=== PATIENT | female | born 1985 | race Caucasian/White ===

== ENCOUNTER 2016-03-03 18:22 | Emergency (ER) | payer MEDICAID, SELFPAY ==
[2016-03-03] MEDS ORDERED: AZITHROMYCIN 250 MG TAB ONE (20:31)
[2016-03-03] MEDS ORDERED: LIDOCAINE 1% MDV 20 ML ONE (20:31)
[2016-03-03] MEDS ORDERED: CEFTRIAXONE 1 GM VIAL ONE (20:31)
== END 2016-03-03 21:30 | disposition home or self-care (01) ==
LOC: FASTR 18:22
CPT/HCPCS: 81001; 87077; 87088; 87186; 87491; 87591; 87800; 96372